=== PATIENT | female | born 1980 | race Caucasian/White ===

== ENCOUNTER 2017-02-12 23:41 | Inpatient (IN) | payer BC ==
[~2017-02-12] VITALS: Ht 160 cm; Wt 69.1 kg
[~2017-02-12 23:41] MED LIST: CANASA 1000MG1000 MG RC; CANASA1000 MG RC; MOTRIN 600600 MG/TAB PO; PERCOCET 325 MG1 TA2 PO; PRENATAL VITAMI1 TAB PO; SENOKOT S 50 MG1 TAB PO
[2017-02-12 23:47] VITALS: BP 115/69; PULSE 83; TEMP 98.2
[2017-02-12] MEDS ORDERED: PROBIOTIC-MAJOR PO (23:55)
[2017-02-12] MEDS ORDERED: PRENATAL1 TA7 PO (23:55)
[2017-02-12] MEDS ORDERED: PEPCID 20MG TAB20 MG PO (23:56)
[2017-02-12] MEDS ORDERED: LEXAPRO 10MG10 MG PO (23:56)
[2017-02-12] MEDS ORDERED: MIRALAX119G PO (23:57)
[2017-02-13] VITALS (20 sets, daily range): BP systolic 90–119; BP diastolic 50–75; PULSE 67–96; TEMP 97.4–98
[2017-02-13 03:32] LABS: BASO # 0.1 (0.0-0.2); BASO % 0.7 % (0.0-2.0); EOS # 0.2 (0.0-0.7); EOS % 1.8 % (0-4.0); HEMOGLOBIN 12.8 g/dl (12.5-16.0); LYMPH # 1.9 (1.2-3.4); LYMPH % 22.3 % (20.0-51.0); MEAN CELL VOLUME 97 fl (80.0-100.0); MEAN CORPUSCULAR HEMOGLOBIN 34 pg (27.0-31.0); MEAN CORPUSCULAR HGB CONC 35 g/dl (33.0-37.0); MEAN PLATELET VOLUME 10.8 fl (7.4-10.4); MONO # 0.5 (0.1-0.6); MONO % 5.6 % (1.7-9.3); PLATELET COUNT 192 K/mm3 (130-400); RED BLOOD COUNT 3.79 M/mm3 (4.10-5.30); REDCELL DISTRIBUTION WIDTH-CV 12.6 % (11.5-14.5); WHITE BLOOD COUNT 8.7 K/mm3 (4.8-10.8)
[2017-02-13 03:33] LABS: HEMATOCRIT 36.8 % (37.0-47.0)
[2017-02-14 04:07] VITALS: BP 107/72; PULSE 72; TEMP 97.5
[2017-02-14 07:30] VITALS: BP 106/70; PULSE 72; TEMP 97.3
[2017-02-14 09:17] LABS: HEMOGLOBIN 12.3 g/dl (12.5-16.0)
[2017-02-14 09:28] LABS: HEMATOCRIT 36.8 % (37.0-47.0)
[2017-02-14 15:36] VITALS: BP 109/71; PULSE 64; TEMP 97.8
[2017-02-14 19:45] VITALS: BP 99/57; PULSE 75; TEMP 98.3
[2017-02-15 07:30] VITALS: BP 106/69; PULSE 66; TEMP 97.6
[2017-02-15] MEDS ORDERED: MOTRIN 600600 MG/TAB PO (09:14)
[2017-02-15] MEDS ORDERED: PERCOCET 325 MG1 TA2 PO (09:15)
== END 2017-02-15 12:10 | disposition home or self-care (01) | DRG 775 ==
LOC: LDRO 23:41 → OB 02-13 02:30 → LDR 02-13 02:30 → OB 02-13 10:00 → LDRO 02-20 09:06
PROVIDERS: Obstetrics & Gynecology
PROC: 10E0XZZ Delivery of Products of Conception, External Approach (ICD-10-PCS; principal; 2017-02-13)
PROC: 0HQ9XZZ Repair Perineum Skin, External Approach (ICD-10-PCS; 2017-02-13)
DX: O99.824 Streptococcus B carrier state complicating childbirth (principal); O70.0 First degree perineal laceration during delivery; Z3A.39 39 weeks gestation of pregnancy; Z37.0 Single live birth
CPT/HCPCS: J2540; J2590; J7120

== ENCOUNTER → 2018-10-10 | Outpatient (CLI) | payer BC ==
[~2018-10-10] MED LIST changes: +LEXAPRO 10MG10 MG PO; +MIRALAX119G PO; +PEPCID 20MG TAB20 MG PO; +PRENATAL1 TA7 PO; +PROBIOTIC-MAJOR PO
== END ==
LOC: COL.LAB 13:05
DX: K51.90 Ulcerative colitis, unspecified, without complications (principal)

== ENCOUNTER → 2021-04-22 | Outpatient (CLI) | payer BC | LOC: MC.RAD 09:00 | DX: Z12.31 Encounter for screening mammogram for malignant neoplasm of breast (principal) ==

== ENCOUNTER → 2023-04-09 | Outpatient (CLI) | payer BC | LOC: COL.CARD 04-02 10:30 | DX: R00.2 Palpitations (principal) ==